=== PATIENT | male | born 1970 | race Hispanic/Latino ===

== ENCOUNTER 2020-11-30 11:45 | Emergency (ER) | payer BC ==
--- NOTE | 2020-11-30 12:46 | EDPHYS ---
Physician Documentation [facility] Name: Lázaro Jernigan Age: 49 yrs Sex: Male : 1970 Arrival Date: 11/30/2020 Time: 11:49 Bed 26 Private MD: ED Physician Mitchell Cadena HPI: 11/30 12:33 This 49 yrs old Male presents to ER via Ambulatory with complaints of left arm jr8 pain. 12:33 Onset: The symptoms/episode began/occurred acutely, 2 day(s) ago. Modifying factors: jr8 the symptoms are alleviated by nothing. The symptoms are aggravated by movement. Associated signs and symptoms: The patient has no apparent associated signs or symptoms. Severity of symptoms: At their worst the symptoms were mild, in the emergency department the symptoms are unchanged. The patient has not experienced similar symptoms in the past. The patient has been recently seen by a physician:. Patient stated that he got the covid shot 2 days ago. Now having left arm pain. Injection site was on the left side. Denies any other problems at this time. Through further discussion with patients history it was found that he had been taking insulin 70/30 from [place] but has no official diabetic history. Historical: - Allergies: 12:02 No Known Allergies; vg1 - Home Meds: 12:02 Humulin 70/30 Sub-Q [Active]; vg1 - PMHx: 12:02 Diabetes mellitus; Hypertensive disorder; vg1 - PSHx: 12:02 Left Knee; vg1 - Immunization history:: Adult Immunizations up to date, Client reports receiving the 2nd dose of the Covid vaccine, Date received: November 28, 2020. - Social history:: Smoking status: Patient reports the use of cigarette tobacco products, denies chronic smoking, but will smoke occasionally. ROS: 12:33 Eyes: Negative for injury, pain, redness, and discharge, ENT: Negative for injury, jr8 pain, and discharge, Neck: Negative for injury, pain, and swelling, Cardiovascular: Negative for chest pain, palpitations, and edema, Respiratory: Negative for shortness of breath, cough, wheezing, and pleuritic chest pain, Abdomen/GI: Negative for abdominal pain, nausea, vomiting, diarrhea, and constipation, Back: Negative for injury and pain, Skin: Negative for injury, rash, and discoloration, Neuro: Negative for headache, weakness, numbness, tingling, and seizure. 12:33 MS/extremity: Positive for pain, of the left arm. Exam: 12:33 Constitutional: This is a well developed, well nourished patient who is awake, alert, jr8 and in no acute distress. Neck: Trachea midline, no thyromegaly or masses palpated, and no cervical lymphadenopathy. Supple, full range of motion without nuchal rigidity, or vertebral point tenderness. No Meningismus. Chest/axilla: Normal chest wall appearance and motion. Nontender with no deformity. No lesions are appreciated. Cardiovascular: Regular rate and rhythm with a normal S1 and S2. No gallops, murmurs, or rubs. Normal PMI, no JVD. No pulse deficits. Respiratory: Lungs have equal breath sounds bilaterally, clear to auscultation and percussion. No rales, rhonchi or wheezes noted. No increased work of breathing, no retractions or nasal flaring. Abdomen/GI: Soft, non-tender, with normal bowel sounds. No distension or tympany. No guarding or rebound. No evidence of tenderness throughout. Back: No spinal tenderness. No costovertebral tenderness. Full range of motion. Skin: Warm, dry with normal turgor. Normal color with no rashes, no lesions, and no evidence of cellulitis. Neuro: Awake and alert, GCS 15, oriented to person, place, time, and situation. Cranial nerves II-XII grossly intact. Motor strength 5/5 in all extremities. Sensory grossly intact. Cerebellar exam normal. Normal gait. 12:33 Musculoskeletal/extremity: Extremities: grossly normal except: noted in the left arm: pain, tenderness, left shoulder region, ROM: intact in all extremities, Circulation is intact in all extremities. Sensation intact. Vital Signs: 12:00 BP 124 / 92; Pulse 82; Resp 16; Temp 98.1; Pulse Ox 100% ; Weight 95.25 kg; Height 5 vg1 ft. 11 in. (180.34 cm); Pain 5/10; 12:00 Body Mass Index 29.29 (95.25 kg, 180.34 cm) vg1 MDM: 12:08 Patient medically screened. [facility] 12:33 Data reviewed: vital signs, nurses notes, lab test result(s). Data interpreted: Pulse jr8 oximetry: on room air is 100 %. Interpretation: normal. Counseling: I had a detailed discussion with the patient and/or guardian regarding: the historical points, exam findings, and any diagnostic results supporting the discharge/admit diagnosis, lab results, the need for outpatient follow up, a family practitioner, to return to the emergency department if symptoms worsen or persist or if there are any questions or concerns that arise at home. ED course: Detailed discussion with patient that he should not at any point in time take insulin not prescribed to him and without official diagnosis from a physician of having diabetes. Patient understood and would stop. Also explained to him that his shoulder pain is common post COVID vaccination . 11/30 12:43 Order name: Glucose Level; Complete Time: 12:53 jr8 Administered Medications: No medications were administered Disposition: 13:12 Co-signature as Attending Physician, Mitchell Cadena MD I agree with the assessment and kdr plan of care. Disposition Summary: 11/30/20 12:45 Discharge Ordered Location: Home jr8 Problem: new jr8 Symptoms: have improved jr8 Condition: Stable jr8 Diagnosis - Pain in left arm jr8 Followup: jr8 - With: Private Physician - When: 1 - 2 days - Reason: Recheck today's complaints, Continuance of care, Re-evaluation by your physician Discharge Instructions: - Discharge Summary Sheet jr8 - Frequently Asked Questions About COVID-19 Vaccination - [facility] jr8 Forms: - Medication Reconciliation Form jr8 - Thank You Letter jr8 - Antibiotic Education jr8 - Prescription Opioid Use jr8 Signatures: Mitchell Cadena MD MD [facility] Tai Pizarro PA PA jr8 Aliyah Freeman, RN RN vg1
--- NOTE | 2020-11-30 12:46 | ER ---
Nurse's Notes [facility] Name: Lázaro Jernigan Age: 49 yrs Sex: Male : 1970 Arrival Date: 11/30/2020 Time: 11:49 Bed 26 Private MD: Diagnosis: Pain in left arm Presentation: 11/30 12:00 Chief complaint: Patient states: Pt was worried about blood pressure being high and vg1 sugars. Also states received the Covid vaccine on 11/28/20 and since c/o Left arm pain, neck and lower back pain. Coronavirus screen: Client denies travel out of the [place] in the last 14 days. Ebola Screen: Patient negative for fever greater than or equal to 101.5 degrees Fahrenheit, and additional compatible Ebola Virus Disease symptoms. Initial Sepsis Screen: Does the patient meet any 2 criteria? No. Patient's initial sepsis screen is negative. Does the patient have a suspected source of infection? No. Patient's initial sepsis screen is negative. Risk Assessment: Do you want to hurt yourself or someone else? Patient reports no desire to harm self or others. Onset of symptoms was November 28, 2020. 12:00 Method Of Arrival: Ambulatory vg1 12:00 Acuity: GENTRY 3 vg1 Triage Assessment: 12:02 General: Appears in no apparent distress. comfortable, Behavior is calm, cooperative. vg1 Pain: Complains of pain in Left Arm, Neck, Lower back. Historical: - Allergies: 12:02 No Known Allergies; vg1 - Home Meds: 12:02 Humulin 70/30 Sub-Q [Active]; vg1 - PMHx: 12:02 Diabetes mellitus; Hypertensive disorder; vg1 - PSHx: 12:02 Left Knee; vg1 - Immunization history:: Adult Immunizations up to date, Client reports receiving the 2nd dose of the Covid vaccine, Date received: November 28, 2020. - Social history:: Smoking status: Patient reports the use of cigarette tobacco products, denies chronic smoking, but will smoke occasionally. Screenin:04 Abuse screen: Denies threats or abuse. Nutritional screening: No deficits noted. vg1 Tuberculosis screening: No symptoms or risk factors identified. Fall Risk No fall in past 12 months (0 pts). No secondary diagnosis (0 pts). IV access (20 points). Ambulatory Aid- None/Bed Rest/Nurse Assist (0 pts). Gait- Normal/Bed Rest/Wheelchair (0 pts) Mental Status- Oriented to own ability (0 pts). Total Johnson Fall Scale indicates No Risk (0-24 pts). Assessment: 12:16 Reassessment: ECP at bedside. zb 12:53 Reassessment: sugars 303. notified ecp. zb 12:57 Reassessment: d/c instructions given. patient advised to monitor sugar. increase water zb intake. provide list of primary care in area. Vital Signs: 12:00 BP 124 / 92; Pulse 82; Resp 16; Temp 98.1; Pulse Ox 100% ; Weight 95.25 kg; Height 5 vg1 ft. 11 in. (180.34 cm); Pain 5/10; 12:00 Body Mass Index 29.29 (95.25 kg, 180.34 cm) vg1 ED Course: 11:49 Patient arrived in ED. wm 11:54 Aliyah Freeman RN is Primary Nurse. vg1 11:55 Tai Pizarro PA is PHCP. jr8 11:55 Mitchell Cadena MD is Attending Physician. jr8 12:02 Triage completed. vg1 12:02 Arm band placed on. vg1 12:04 Patient has correct armband on for positive identification. Bed in low position. Call vg1 light in reach. Side rails up X 1. 12:16 Primary Nurse role handed off by Aliyah Freeman RN zb 12:16 Charleen Hernandez RN is Primary Nurse. zb 12:17 Report received from JONATHAN Bautista. zb 13:00 No provider procedures requiring assistance completed. Patient did not have IV access zb during this emergency room visit. Administered Medications: No medications were administered Outcome: 12:45 Discharge ordered by . jr8 13:00 Discharged to home ambulatory. zb 13:00 Condition: stable 13:00 Discharge instructions given to patient, Instructed on discharge instructions, follow up and referral plans. Demonstrated understanding of instructions, follow-up care. 13:00 Patient left the ED. zb Signatures: Tai Pizarro PA PA jr8 Aliyah Freeman RN RN 1 Charleen Hernandez RN RN Alexia Quintanilla
[2020-11-30 13:11] VITALS: BP 124/92; TEMP 98.1; O2SAT 100
== END 2020-11-30 13:00 | disposition home or self-care (01) ==
LOC: ER 11:45
DX: M79.602 Pain in left arm (principal); I10 Essential (primary) hypertension; E11.9 Type 2 diabetes mellitus without complications; F17.210 Nicotine dependence, cigarettes, uncomplicated; Z79.4 Long term (current) use of insulin
CPT/HCPCS: 82947; 99281